=== PATIENT | male | born 1955 | race African-American/Black ===

== ENCOUNTER 2020-02-21 13:23 | Emergency (ER) | payer MEDICARE, MEDICAID ==
[~2020-02-21] VITALS: Ht 170.2 cm; Wt 64.0 kg
[2020-02-21 13:26] VITALS: BP 82/52
== END 2020-02-21 13:56 | disposition left against medical advice (07) ==
LOC: ER 13:55
DX: R07.9 Chest pain, unspecified (principal); Z53.21 Procedure and treatment not carried out due to patient leaving prior to being seen by health care provider